=== PATIENT | female | born 1950 | race African-American/Black ===

== ENCOUNTER 2022-12-09 05:49 | Inpatient (IN) | payer MEDICARE, MEDICAID ==
[~2022-12-09] VITALS: Ht 165.1 cm; Wt 108.9 kg
[2022-12-09] MEDS ORDERED: DOXA1TAB2 PO (07:29)
[2022-12-09] MEDS ORDERED: LOSA1TAB40 PO (07:29)
[2022-12-09] MEDS ORDERED: AMLO10TA80 PO (07:29)
[2022-12-09] MEDS ORDERED: NAPR500T7 PO (07:29)
[2022-12-09] MEDS ORDERED: ATEN50TA PO (07:29)
[2022-12-09] MEDS ORDERED: LORA10TA7 PO (07:29)
[2022-12-09] MEDS ORDERED: LACTATED RINGERS 1,000 ML IV SCH (07:30)
[2022-12-09] MEDS ORDERED: FENTANYL CITRATE/PF 50MCG/ML 2ML VIAL ONE (08:16)
[2022-12-09] MEDS ORDERED: ROCURONIUM BROMIDE 10MG/ML VIAL 5ML IV ONE ×2 (08:16→09:43)
[2022-12-09] MEDS ORDERED: PROPOFOL 200MG/20ML VIAL IV ONE (08:16)
[2022-12-09] MEDS ORDERED: MIDAZOLAM HCL 2 MG/2 ML VIAL ONE ×2 (08:17→08:40)
[2022-12-09] MEDS ORDERED: LEVOFLOXACIN 500MG PREMIX 100 ML IV ONE (08:57)
[2022-12-09] MEDS ORDERED: PHENYLEPHRINE HCL 10 MG/ML 1ML (IV VIAL) IV ONE (09:19)
[2022-12-09] MEDS ORDERED: GLYCOPYRROLATE 0.2 MG/ML 2ML VIAL ONE ×2 (09:47→10:07)
[2022-12-09] MEDS ORDERED: ONDANSETRON HCL 4MG/2ML INJ ONE (10:10)
[2022-12-09] MEDS ORDERED: KETOROLAC 30MG/ML VIAL ONE (10:10)
[2022-12-09] MEDS ORDERED: MORPHINE SULFATE 2 MG/ML CPJ (NOT FOR IM USE) IV PRN (10:30)
[2022-12-09] MEDS ORDERED: ONDANSETRON HCL 4MG/2ML INJ IV PRN (10:30)
[2022-12-09] MEDS ORDERED: MORPHINE SULFATE 4 MG/ML CPJ (NOT FOR IM USE) IV PRN (10:30)
[2022-12-09] MEDS ORDERED: NALOXONE HCL 0.4MG/ML VIAL IV PRN (10:45)
[2022-12-09] MEDS ORDERED: NALOXONE INJ IV PRN (11:00)
[2022-12-09] MEDS ORDERED: DIPHENHYDRAMINE INJ IV PRN (11:00)
[2022-12-09] MEDS: HYDROMORPHONE PCA 10MG/50ML IV PRN (11:14)
[2022-12-09 11:17] LABS: BASOPHILS % 0.2 % (0.0-2.0); EOSINOPHILS % 0.6 % (0.0-5.0); HEMATOCRIT. 35.7 % (36.0-48.0); LYMPHOCYTES % 20.2 % (20.0-50.0); MEAN CORPUSCULAR HEMOGLOBIN 30.6 pg (28.0-32.0); MEAN CORPUSCULAR HGB CONC 33.6 g/dL (31.0-37.0); MEAN CORPUSCULAR VOLUME 91.1 fL (81.0-99.0); MEAN PLATELET VOLUME 9.3 fl (7.4-10.4); PLATELET 181 x1000/uL (130-400); RED BLOOD CELL COUNT 3.92 mill/uL (4.2-5.4); RED CELL DISTRIBUTION WIDTH 13.9 % (11.6-14.6); WHITE BLOOD COUNT 9.2 x1000/uL (4.5-11.0)
[2022-12-09 11:32] LABS: CHLORIDE 107 mEq/L (98-107); INDEX HEMOLYSI 1 (1-3); INDEX ICTERIC 1 (1-4); INDEX LIPEMIC 1 (1-3); POTASSIUM 3.6 mEq/L (3.5-5.1); SODIUM 140 mEq/L (136-145)
[2022-12-09 11:39] LABS: CALCIUM 9.2 mg/dL (8.5-10.1); CARBON DIOXIDE 26 mEq/L (21-32); GLUCOSE 163 mg/dL (70-105); UREA NITROGEN BLOOD 16 mg/dL (7-21)
[2022-12-09] MEDS ORDERED: SODIUM CHLORIDE 0.9% 1,000 ML IV SCH ×2 (12:30→13:45)
[2022-12-09] MEDS ORDERED: GLYCOPYRROLATE 0.2 MG/ML 2ML VIAL IV NR (13:30)
[2022-12-09 14:54] LABS: HEMATOCRIT 33.2 % (36.0-48.0); HEMOGLOBIN 11.2 g/dL (12.0-16.0)
[2022-12-09] MEDS ORDERED: EPHEDRINE SULFATE 50MG/ML VIAL ONE (14:55)
[2022-12-09] MEDS ORDERED: CEFAZOLIN 1000MG PREMIX 50 ML IV SCH (15:00)
[2022-12-09] MEDS ORDERED: DEXT 5%/0.45% NACL KCL 20MEQ/L 1,000 ML IV SCH (15:00)
[2022-12-09] MEDS ORDERED: HYDRALAZINE 20MG/ML VIAL IV PRN (17:00)
[2022-12-09] MEDS ORDERED: HYDRALAZINE 10 MG in SODIUM CHLORIDE 0.9% 49.5 ML IV PRN (17:15)
[2022-12-09] MEDS: DEXT 5%/0.45% NACL KCL 20MEQ/L 1,000 ML IV SCH (18:58)
[2022-12-09] MEDS: CEFAZOLIN 1000MG PREMIX 50 ML IV SCH (19:00)
[2022-12-09 20:00] VITALS: BP 105/52; PULSE 68; RESP 18; TEMP 97.9
[2022-12-09 20:02] VITALS: BP 104/53; PULSE 88; RESP 18; TEMP 98.2
[2022-12-09] MEDS: FAMOTIDINE 20MG/2ML VIAL IV SCH (21:29)
[2022-12-10] VITALS: BP 116/58; PULSE 75; RESP 18; TEMP 98.7
[2022-12-10] MEDS: DEXT 5%/0.45% NACL KCL 20MEQ/L 1,000 ML IV SCH ×2 (02:00→11:00)
[2022-12-10 04:00] VITALS: BP 115/55; PULSE 82; RESP 18; TEMP 98.7
[2022-12-10] MEDS: CEFAZOLIN 1000MG PREMIX 50 ML IV SCH ×3 (04:58→21:54)
[2022-12-10 05:35] LABS: BASOPHILS % 0.1 % (0.0-2.0); HEMATOCRIT. 33.3 % (36.0-48.0); HEMOGLOBIN. 10.9 g/dL (12.0-16.0); LYMPHOCYTES % 11.2 % (20.0-50.0); MEAN CORPUSCULAR HEMOGLOBIN 29.9 pg (28.0-32.0); MEAN CORPUSCULAR HGB CONC 32.7 g/dL (31.0-37.0); MEAN CORPUSCULAR VOLUME 91.6 fL (81.0-99.0); MEAN PLATELET VOLUME 9.4 fl (7.4-10.4); MONOCYTES % 8.3 % (2.0-8.0); NEUTROPHILS % 80.4 % (40.0-76.0); PLATELET 178 x1000/uL (130-400); RED BLOOD CELL COUNT 3.64 mill/uL (4.2-5.4); RED CELL DISTRIBUTION WIDTH 13.8 % (11.6-14.6); WHITE BLOOD COUNT 8.8 x1000/uL (4.5-11.0)
[2022-12-10 05:47] LABS: POTASSIUM 3.9 mEq/L (3.5-5.1)
[2022-12-10 05:54] LABS: CREATININE 1.3 mg/dL (0.6-1.3); PHOSPHORUS 4.1 mg/dL (2.5-4.9)
[2022-12-10 08:00] VITALS: BP 122/60; PULSE 71; RESP 19; TEMP 95.7
[2022-12-10] MEDS: FAMOTIDINE 20MG/2ML VIAL IV SCH (08:43)
[2022-12-10 12:00] VITALS: BP 138/61; PULSE 78; RESP 19; TEMP 97.9
[2022-12-10 16:00] VITALS: BP 132/67; PULSE 78; RESP 18; TEMP 98.1
[2022-12-10 20:00] VITALS: BP 139/56; PULSE 81; RESP 16; TEMP 98
[2022-12-11] VITALS: BP 145/55; PULSE 94; RESP 16; TEMP 97.9
[2022-12-11] MEDS: DEXT 5%/0.45% NACL KCL 20MEQ/L 1,000 ML IV SCH ×2 (02:00→12:00)
[2022-12-11 07:08] LABS: HEMATOCRIT. 32.1 % (36.0-48.0); HEMOGLOBIN. 10.7 g/dL (12.0-16.0); MEAN CORPUSCULAR HEMOGLOBIN 30.2 pg (28.0-32.0); MEAN CORPUSCULAR HGB CONC 33.3 g/dL (31.0-37.0); MEAN CORPUSCULAR VOLUME 90.8 fL (81.0-99.0); MEAN PLATELET VOLUME 9.7 fl (7.4-10.4); PLATELET 179 x1000/uL (130-400); RED BLOOD CELL COUNT 3.54 mill/uL (4.2-5.4); RED CELL DISTRIBUTION WIDTH 13.8 % (11.6-14.6); WHITE BLOOD COUNT 9.1 x1000/uL (4.5-11.0)
[2022-12-11 07:17] LABS: DIFFERENTIAL COMMENT 1
[2022-12-11 07:41] LABS: CHLORIDE 107 mEq/L (98-107); INDEX HEMOLYSI 1 (1-3); INDEX ICTERIC 1 (1-4); INDEX LIPEMIC 1 (1-3); POTASSIUM 3.9 mEq/L (3.5-5.1); SODIUM 138 mEq/L (136-145)
[2022-12-11 07:43] LABS: CALCIUM 8.6 mg/dL (8.5-10.1)
[2022-12-11 07:49] LABS: CARBON DIOXIDE 25 mEq/L (21-32); CREATININE 0.8 mg/dL (0.6-1.3); GLUCOSE 136 mg/dL (70-105); PHOSPHORUS 1.6 mg/dL (2.5-4.9); UREA NITROGEN BLOOD 10 mg/dL (7-21)
[2022-12-11 08:00] VITALS: BP 144/62; PULSE 72; RESP 19; TEMP 97.9
[2022-12-11 12:00] VITALS: BP 135/60; PULSE 98; RESP 19; TEMP 99
[2022-12-11] MEDS ORDERED: MAGNESIUM 4 G PREMIX 100 ML IV NR (12:00)
[2022-12-11] MEDS ORDERED: POTASSIUM PHOS,M-BASIC-D-BASIC 15 MMOL in DEXT 5% WATER 245 ML IV NR (12:00)
[2022-12-11 16:00] VITALS: BP 145/61; PULSE 104; RESP 19; TEMP 100.1
[2022-12-11] MEDS ORDERED: SODIUM PHOS,M-BASIC-D-BASIC 10 MM in DEXT 5% WATER 246.6667 ML IV NR (16:00)
[2022-12-11 17:59] LABS: PLATELET ESTIMATE NORMAL
[2022-12-11] MEDS: HYDROMORPHONE PCA 10MG/50ML IV PRN (18:44)
[2022-12-11 20:00] VITALS: BP 148/59; PULSE 92; RESP 18; TEMP 96.5
[2022-12-12] VITALS: BP 171/80; PULSE 77; RESP 18; TEMP 96.3
[2022-12-12] MEDS: DEXT 5%/0.45% NACL KCL 20MEQ/L 1,000 ML IV SCH ×3 (02:00→17:18)
[2022-12-12 04:00] VITALS: BP 187/66; PULSE 90; RESP 18; TEMP 95
[2022-12-12 07:12] LABS: BASOPHILS % 0.3 % (0.0-2.0); EOSINOPHILS % 0.1 % (0.0-5.0); HEMATOCRIT. 32.8 % (36.0-48.0); HEMOGLOBIN. 11.2 g/dL (12.0-16.0); LYMPHOCYTES % 8.6 % (20.0-50.0); MEAN CORPUSCULAR HEMOGLOBIN 30.7 pg (28.0-32.0); MEAN CORPUSCULAR HGB CONC 34.2 g/dL (31.0-37.0); MEAN CORPUSCULAR VOLUME 89.8 fL (81.0-99.0); MONOCYTES % 6.3 % (2.0-8.0); NEUTROPHILS % 84.7 % (40.0-76.0); PLATELET 212 x1000/uL (130-400); RED BLOOD CELL COUNT 3.66 mill/uL (4.2-5.4); RED CELL DISTRIBUTION WIDTH 13.7 % (11.6-14.6); WHITE BLOOD COUNT 9.4 x1000/uL (4.5-11.0)
[2022-12-12 07:48] LABS: CHLORIDE 103 mEq/L (98-107); INDEX HEMOLYSI 2 (1-3); INDEX ICTERIC 1 (1-4); INDEX LIPEMIC 1 (1-3); POTASSIUM 3.7 mEq/L (3.5-5.1); SODIUM 135 mEq/L (136-145)
[2022-12-12 07:53] LABS: CALCIUM 8.7 mg/dL (8.5-10.1); CARBON DIOXIDE 24 mEq/L (21-32); CREATININE 0.7 mg/dL (0.6-1.3); GLUCOSE 154 mg/dL (70-105); UREA NITROGEN BLOOD 10 mg/dL (7-21)
[2022-12-12 08:00] VITALS: BP 157/61; PULSE 93; RESP 20; TEMP 96.6
[2022-12-12] MEDS: ONDANSETRON INJ IV PRN (08:40)
[2022-12-12] MEDS: FAMOTIDINE 20MG/2ML VIAL IV SCH (08:40)
[2022-12-12 12:00] VITALS: BP 151/64; PULSE 96; RESP 19; TEMP 96.6
[2022-12-12 16:00] VITALS: BP 121/103; PULSE 89; RESP 20; TEMP 97.8
[2022-12-12 20:00] VITALS: BP 164/64; PULSE 84; RESP 18; TEMP 97.7
[2022-12-12] MEDS: HYDRALAZINE 10 MG in SODIUM CHLORIDE 0.9% 49.5 ML IV PRN (23:01)
[2022-12-13] MEDS: DEXT 5%/0.45% NACL KCL 20MEQ/L 1,000 ML IV SCH ×3 (02:48→17:53)
[2022-12-13 04:00] VITALS: BP 162/70; PULSE 85; RESP 18; TEMP 97.5
[2022-12-13 08:00] VITALS: BP 175/59; PULSE 96; RESP 20; TEMP 95.5
[2022-12-13 08:29] LABS: BASOPHILS % 0.1 % (0.0-2.0); EOSINOPHILS % 0.1 % (0.0-5.0); HEMATOCRIT. 37.2 % (36.0-48.0); HEMOGLOBIN. 12.3 g/dL (12.0-16.0); LYMPHOCYTES % 9.4 % (20.0-50.0); MEAN CORPUSCULAR HEMOGLOBIN 30.1 pg (28.0-32.0); MEAN CORPUSCULAR HGB CONC 33.1 g/dL (31.0-37.0); MEAN PLATELET VOLUME 9.4 fl (7.4-10.4); NEUTROPHILS % 82.4 % (40.0-76.0); PLATELET 286 x1000/uL (130-400); RED BLOOD CELL COUNT 4.09 mill/uL (4.2-5.4); RED CELL DISTRIBUTION WIDTH 13.7 % (11.6-14.6); WHITE BLOOD COUNT 10.4 x1000/uL (4.5-11.0)
[2022-12-13 08:43] LABS: CHLORIDE 101 mEq/L (98-107); INDEX HEMOLYSI 1 (1-3); INDEX ICTERIC 1 (1-4); INDEX LIPEMIC 1 (1-3); POTASSIUM 4.1 mEq/L (3.5-5.1); SODIUM 134 mEq/L (136-145)
[2022-12-13 08:53] LABS: CALCIUM 8.8 mg/dL (8.5-10.1); CARBON DIOXIDE 26 mEq/L (21-32); CREATININE 0.7 mg/dL (0.6-1.3); GLUCOSE 156 mg/dL (70-105); UREA NITROGEN BLOOD 13 mg/dL (7-21)
[2022-12-13] MEDS: HYDRALAZINE 10 MG in SODIUM CHLORIDE 0.9% 49.5 ML IV PRN (09:27)
[2022-12-13 12:00] VITALS: BP 158/78; PULSE 97; TEMP 100
[2022-12-13 16:00] VITALS: BP 167/65; PULSE 84; RESP 20; TEMP 97.1
[2022-12-13 20:00] VITALS: BP 150/63; PULSE 78; RESP 18; TEMP 96.7
[2022-12-13] MEDS: HYDROMORPHONE PCA 10MG/50ML IV PRN (20:17)
[2022-12-13] MEDS: ONDANSETRON INJ IV PRN (23:20)
[2022-12-14] VITALS (10 sets, daily range): BP systolic 112–152; BP diastolic 70–88; PULSE 80–93; RESP 16–20; TEMP 97.5–98.5
[2022-12-14] MEDS: DEXT 5%/0.45% NACL KCL 20MEQ/L 1,000 ML IV SCH ×3 (01:17→18:01)
[2022-12-14 07:57] LABS: CHLORIDE 104 mEq/L (98-107); INDEX HEMOLYSI 1 (1-3); INDEX ICTERIC 1 (1-4); INDEX LIPEMIC 1 (1-3); POTASSIUM 4.2 mEq/L (3.5-5.1); SODIUM 136 mEq/L (136-145)
[2022-12-14 08:12] LABS: CALCIUM 8.6 mg/dL (8.5-10.1); CARBON DIOXIDE 28 mEq/L (21-32); CREATININE 0.7 mg/dL (0.6-1.3); GLUCOSE 167 mg/dL (70-105); UREA NITROGEN BLOOD 12 mg/dL (7-21)
[2022-12-14] MEDS: FAMOTIDINE 20MG/2ML VIAL IV SCH ×2 (08:32→21:36)
[2022-12-14] MEDS: AMLODIPINE 5MG TABLET PO SCH (18:00)
[2022-12-15] VITALS (7 sets, daily range): BP systolic 107–170; BP diastolic 66–84; PULSE 70–101; RESP 14–20; TEMP 96.9–98.1
[2022-12-15] MEDS: DEXT 5%/0.45% NACL KCL 20MEQ/L 1,000 ML IV SCH ×2 (02:00→16:30)
[2022-12-15 07:50] LABS: POTASSIUM 4.4 mEq/L (3.5-5.1)
[2022-12-15 07:52] LABS: PHOSPHORUS 2.3 mg/dL (2.5-4.9)
[2022-12-15] MEDS: AMLODIPINE 5MG TABLET PO SCH (08:27)
[2022-12-15] MEDS: FAMOTIDINE 20MG/2ML VIAL IV SCH ×2 (08:28→20:42)
[2022-12-15] MEDS ORDERED: POTASSIUM PHOS,M-BASIC-D-BASIC 15 MMOL in DEXT 5% WATER 245 ML IV ONE (19:15)
[2022-12-15] MEDS ORDERED: MAGNESIUM 1 G PREMIX 100 ML IV NR (20:30)
[2022-12-15] MEDS ORDERED: SODIUM PHOS,M-BASIC-D-BASIC 15 MM in DEXTROSE 5% WATER 250 ML IV NR (21:00)
[2022-12-16] MEDS: DEXT 5%/0.45% NACL KCL 20MEQ/L 1,000 ML IV SCH ×2 (02:00→18:00)
[2022-12-16 06:26] LABS: BASOPHILS % 0.3 % (0.0-2.0); EOSINOPHILS % 2.9 % (0.0-5.0); HEMATOCRIT. 34.6 % (36.0-48.0); HEMOGLOBIN. 11.5 g/dL (12.0-16.0); LYMPHOCYTES % 19.9 % (20.0-50.0); MEAN CORPUSCULAR HEMOGLOBIN 30.1 pg (28.0-32.0); MEAN CORPUSCULAR HGB CONC 33.3 g/dL (31.0-37.0); MEAN CORPUSCULAR VOLUME 90.4 fL (81.0-99.0); MEAN PLATELET VOLUME 8.4 fl (7.4-10.4); MONOCYTES % 14.2 % (2.0-8.0); NEUTROPHILS % 62.7 % (40.0-76.0); PLATELET 268 x1000/uL (130-400); RED BLOOD CELL COUNT 3.82 mill/uL (4.2-5.4); RED CELL DISTRIBUTION WIDTH 13.7 % (11.6-14.6); WHITE BLOOD COUNT 5.2 x1000/uL (4.5-11.0)
[2022-12-16 07:34] LABS: CHLORIDE 99 mEq/L (98-107); INDEX HEMOLYSI 1 (1-3); INDEX ICTERIC 1 (1-4); INDEX LIPEMIC 1 (1-3); POTASSIUM 3.7 mEq/L (3.5-5.1); SODIUM 132 mEq/L (136-145)
[2022-12-16 07:43] LABS: ALANINE AMINOTRANSFERASE 124 IU/L (13-61); ALBUMIN 2.2 g/dL (3.4-5.0); ASPARTATE AMINOTRANSFERASE 123 IU/L (15-37); BILIRUBIN TOTAL 1.4 mg/dL (0.1-1.0); CARBON DIOXIDE 27 mEq/L (21-32); CREATININE 0.7 mg/dL (0.6-1.3); GLUCOSE 143 mg/dL (70-105); PHOSPHORUS 3.5 mg/dL (2.5-4.9); PREALBUMIN 13.1 mg/dL (20.0-40.0); PROTEIN TOTAL 5.7 g/dL (6.0-8.3); UREA NITROGEN BLOOD 9 mg/dL (7-21); URIC ACID 4.2 mg/dL (2.6-7.2)
[2022-12-16] MEDS: FAMOTIDINE 20MG/2ML VIAL IV SCH ×2 (08:15→20:02)
[2022-12-16] MEDS: AMLODIPINE 5MG TABLET PO SCH (08:15)
[2022-12-16 12:00] VITALS: BP 121/72; PULSE 70; RESP 21; TEMP 98.2
[2022-12-16 20:00] VITALS: BP 145/68; PULSE 82; RESP 18; TEMP 99.7
[2022-12-16] MEDS ORDERED: MAGNESIUM 2 G PREMIX 50 ML IV NR (20:00)
[2022-12-17] VITALS: BP 140/69; PULSE 82; RESP 20; TEMP 98.1
[2022-12-17] MEDS: DEXT 5%/0.45% NACL KCL 20MEQ/L 1,000 ML IV SCH ×3 (01:33→21:18)
[2022-12-17 07:06] LABS: BASOPHILS % 0.3 % (0.0-2.0); EOSINOPHILS % 2.5 % (0.0-5.0); HEMATOCRIT. 35.3 % (36.0-48.0); HEMOGLOBIN. 11.7 g/dL (12.0-16.0); LYMPHOCYTES % 23.9 % (20.0-50.0); MEAN CORPUSCULAR HEMOGLOBIN 29.7 pg (28.0-32.0); MEAN CORPUSCULAR HGB CONC 33.2 g/dL (31.0-37.0); MEAN CORPUSCULAR VOLUME 89.3 fL (81.0-99.0); MEAN PLATELET VOLUME 8.4 fl (7.4-10.4); MONOCYTES % 12.3 % (2.0-8.0); PLATELET 296 x1000/uL (130-400); RED BLOOD CELL COUNT 3.95 mill/uL (4.2-5.4); RED CELL DISTRIBUTION WIDTH 13.6 % (11.6-14.6); WHITE BLOOD COUNT 5.7 x1000/uL (4.5-11.0)
[2022-12-17 07:35] VITALS: BP 168/75; PULSE 81; RESP 20; TEMP 98.1
[2022-12-17 08:00] VITALS: BP 166/70; PULSE 73; RESP 19; TEMP 98.2
[2022-12-17 08:41] LABS: CHLORIDE 101 mEq/L (98-107); INDEX HEMOLYSI 1 (1-3); INDEX ICTERIC 1 (1-4); INDEX LIPEMIC 1 (1-3); SODIUM 135 mEq/L (136-145)
[2022-12-17 08:57] LABS: ALANINE AMINOTRANSFERASE 231 IU/L (13-61); ALBUMIN 2.4 g/dL (3.4-5.0); ASPARTATE AMINOTRANSFERASE 185 IU/L (15-37); BILIRUBIN DIRECT 0.4 mg/dL (0.0-0.2); CALCIUM 8.1 mg/dL (8.5-10.1); CARBON DIOXIDE 30 mEq/L (21-32); GLUCOSE 133 mg/dL (70-105); UREA NITROGEN BLOOD 8 mg/dL (7-21)
[2022-12-17] MEDS: FAMOTIDINE 20MG/2ML VIAL IV SCH ×2 (09:20→21:18)
[2022-12-17] MEDS: AMLODIPINE 5MG TABLET PO SCH (09:21)
[2022-12-17 12:50] VITALS: BP 126/72; PULSE 103; RESP 20; TEMP 96.2
[2022-12-17 16:00] VITALS: BP 145/65; PULSE 74; RESP 19; TEMP 97.9
[2022-12-17 20:00] VITALS: BP 141/78; PULSE 84; RESP 18; TEMP 96.2
[2022-12-18] MEDS: DEXT 5%/0.45% NACL KCL 20MEQ/L 1,000 ML IV SCH ×3 (02:00→19:00)
[2022-12-18 08:00] VITALS: BP 147/63; PULSE 75; RESP 18; TEMP 96.9
[2022-12-18] MEDS: FAMOTIDINE 20MG/2ML VIAL IV SCH ×2 (09:20→21:00)
[2022-12-18] MEDS: AMLODIPINE 5MG TABLET PO SCH ×2 (09:21→09:22)
[2022-12-18 12:00] VITALS: BP 138/60; PULSE 74; RESP 19; TEMP 97.5
[2022-12-18 16:00] VITALS: BP 154/60; PULSE 74; RESP 18; TEMP 97.5
[2022-12-18 20:00] VITALS: BP 158/64; PULSE 77; RESP 20; TEMP 96.5
[2022-12-19] VITALS: BP 159/69; PULSE 75; RESP 20; TEMP 96.1
[2022-12-19] MEDS: DEXT 5%/0.45% NACL KCL 20MEQ/L 1,000 ML IV SCH (01:19)
[2022-12-19 04:00] VITALS: BP 165/67; PULSE 77; RESP 20; TEMP 96.5
[2022-12-19] MEDS: HYDRALAZINE 10 MG in SODIUM CHLORIDE 0.9% 49.5 ML IV PRN (05:00)
[2022-12-19 07:03] LABS: CHLORIDE 105 mEq/L (98-107); INDEX HEMOLYSI 1 (1-3); INDEX ICTERIC 1 (1-4); INDEX LIPEMIC 1 (1-3); POTASSIUM 4.4 mEq/L (3.5-5.1); SODIUM 138 mEq/L (136-145)
[2022-12-19 07:17] LABS: ALANINE AMINOTRANSFERASE 190 IU/L (13-61); ALBUMIN 2.4 g/dL (3.4-5.0); ASPARTATE AMINOTRANSFERASE 85 IU/L (15-37); BILIRUBIN TOTAL 0.5 mg/dL (0.1-1.0); CALCIUM 8.2 mg/dL (8.5-10.1); CARBON DIOXIDE 30 mEq/L (21-32); CREATININE 0.8 mg/dL (0.6-1.3); GLUCOSE 124 mg/dL (70-105); PROTEIN TOTAL 5.8 g/dL (6.0-8.3); UREA NITROGEN BLOOD 3 mg/dL (7-21)
[2022-12-19 08:00] VITALS: BP 163/67; PULSE 79; RESP 19; TEMP 97.7
[2022-12-19 08:24] LABS: BASOPHILS % 0.6 % (0.0-2.0); HEMATOCRIT. 34.4 % (36.0-48.0); HEMOGLOBIN. 11.5 g/dL (12.0-16.0); LYMPHOCYTES % 25.9 % (20.0-50.0); MEAN CORPUSCULAR HEMOGLOBIN 30.6 pg (28.0-32.0); MEAN CORPUSCULAR HGB CONC 33.5 g/dL (31.0-37.0); MEAN CORPUSCULAR VOLUME 91.5 fL (81.0-99.0); MEAN PLATELET VOLUME 8.3 fl (7.4-10.4); MONOCYTES % 11.9 % (2.0-8.0); NEUTROPHILS % 58.6 % (40.0-76.0); PLATELET 264 x1000/uL (130-400); RED BLOOD CELL COUNT 3.76 mill/uL (4.2-5.4); RED CELL DISTRIBUTION WIDTH 13.7 % (11.6-14.6); WHITE BLOOD COUNT 5.8 x1000/uL (4.5-11.0)
[2022-12-19] MEDS: AMLODIPINE 10MG TABLET PO SCH (09:08)
[2022-12-19] MEDS: FAMOTIDINE 20MG/2ML VIAL IV SCH ×2 (09:08→20:34)
[2022-12-19] MEDS: ONDANSETRON INJ IV PRN (10:04)
[2022-12-19 12:00] VITALS: BP 136/63; PULSE 80; RESP 18; TEMP 97.9
[2022-12-19] MEDS ORDERED: HYDR-4001 MT (12:23)
[2022-12-19] MEDS ORDERED: ACET-2708 MT (12:23)
[2022-12-19 16:00] VITALS: BP 149/56; PULSE 82; RESP 19; TEMP 97.9
[2022-12-19 20:00] VITALS: BP 145/53; PULSE 83; RESP 20; TEMP 96.5
[2022-12-20 04:00] VITALS: BP 102/50; PULSE 78; RESP 20; TEMP 96.3
[2022-12-20 08:00] VITALS: BP 144/74; PULSE 76; RESP 19; TEMP 97.9
[2022-12-20] MEDS: AMLODIPINE 10MG TABLET PO SCH (08:37)
[2022-12-20] MEDS: FAMOTIDINE 20MG/2ML VIAL IV SCH (08:37)
[2022-12-20 10:09] VITALS: BP 144/74; PULSE 76; TEMP 97.9; O2SAT 98
== END 2022-12-20 10:44 | disposition home or self-care (01) | DRG 330 ==
LOC: OR 05:49 → 6EST 15:50
PROVIDERS: ADMIT Family Medicine Adult Medicine; ATTEND Family Medicine Adult Medicine
PROC: 0DTM0ZZ Resection of Descending Colon, Open Approach (ICD-10-PCS; principal; 2022-12-09)
DX: C18.6 Malignant neoplasm of descending colon (principal); K56.7 Ileus, unspecified; K91.89 Other postprocedural complications and disorders of digestive system; I10 Essential (primary) hypertension; D64.9 Anemia, unspecified; E83.42 Hypomagnesemia; R74.01 Elevation of levels of liver transaminase levels; Z79.899 Other long term (current) drug therapy; Y83.8 Other surgical procedures as the cause of abnormal reaction of the patient, or of later complication, without mention of misadventure at the time of the procedure; Y82.8 Other medical devices associated with adverse incidents
CPT/HCPCS: 36415; 74018; 76700; 80048; 80053; 80076; 82330; 83735; 84100; 84132; 84134; 84295; 84550; 85014; 85018; 85025; 88307; 97110; 97116; 97162; 97530; 97535; C1893; J0360; J0690; J1170; J1885; J1956; J2250; J2370; J2405; J2704; J3010; J3475; J3490; J7060